=== PATIENT | female | born 1985 | race Caucasian/White ===

== ENCOUNTER 2018-07-25 19:01 | Outpatient (CLI) | payer SELFPAY ==
--- NOTE | 2018-07-25 22:28 | Ultrasound Report ---
Reason: IMBEDDED IUD Procedure Date: 07/25/2018 Accession Number: [id number] / [id number] Procedure: US - Pelvic w/Transvaginal CPT Code: FULL RESULT: EXAM: PELVIC ULTRASOUND. EXAM DATE: 07/25/2018 07:29 PM. CLINICAL HISTORY: Embedded IUD. COMPARISON: None. TECHNIQUE: Realtime transabdominal pelvic scan performed to identify the uterus and adnexa and as an overview of other pelvic structures, followed by transvaginal scan to provide greater detail of the uterus and adnexa, with static image documentation. FINDINGS: Uterus: 8.4 x 3.6 x 5.3 cm, volume 83.3 cc. Anteverted position. Normal overall size and echotexture. Masses: None. Endometrium: 5 mm. IUD is noted. There is a suggestion of leftward deviation of the IUD with the arms embedded into the myometrium. No cine images acquired or submitted. Cervix: Unremarkable. Right Ovary: 4.1 x 2.8 x 3.5 cm, volume 20.9 cc. Normal echotexture and blood flow. 2.5 x 1.5 x 2.1 cm anechoic right ovarian cyst. Left Ovary: 3.7 x 2.9 x 1.9 cm, volume 10.3 cc. Normal echotexture and blood flow. Free Fluid: None. Other: None. IMPRESSION: 1. IUD noted in low position. There is a suggestion of leftward deviation of the IUD with the arms embedded into the wall. Recommend for the patient to return to the imaging center for imaging while a physician is present on site. 2. No endometrial mass or polyp. No uterine fibroids. 3. Both ovaries and adnexa are normal. [facility] The call report notification system was initiated by Dr. Joana Pratt at 22:02 hrs on 07/25/18. The above findings were discussed with Dr Puma Dr by Dr. Joana Pratt at 22:26 hrs on 07/25/18.
== END 2018-07-25 19:02 | disposition home or self-care (01) ==
LOC: DI 19:01
PROVIDERS: ATTEND Physician Assistant
DX: T83.32XA Displacement of intrauterine contraceptive device, initial encounter (principal)
CPT/HCPCS: 76830; 76856

== ENCOUNTER 2018-07-26 08:00 | Outpatient (CLI) | payer SELFPAY | END 2018-07-26 08:01 | LOC: LAB.R 08:00 | PROVIDERS: ATTEND Obstetrics & Gynecology | DX: Z11.3 Encounter for screening for infections with a predominantly sexual mode of transmission (principal) | CPT/HCPCS: 87491; 87591 ==